=== PATIENT | female | born 1980 | race African-American/Black ===

== ENCOUNTER 2020-02-24 07:36 | Outpatient (CLI) | payer BC, OTHER ==
[2020-02-24 13:23] LABS: BHCG - Serum Negative (NEGATIVE); Pregs Control Background? CLEAR/WHITE (CLR/WHITE); Pregs Control Bar Appear? YES (CONTROL BAR)
[2020-02-24 16:53] LABS: SARS-CoV-2 MS2 Positive; SARS-CoV-2 N Gene Negative; SARS-CoV-2 S Gene Negative; SARS-CoV-2 by NAA Not Detected (NotDetected); SARS-CoV-2 orf1ab Negative
== END 2020-02-24 07:37 | disposition home or self-care (01) ==
LOC: LABBT 07:36
PROVIDERS: ATTEND Thoracic Surgery (Cardiothoracic Vascular Surgery)
DX: Z01.812 Encounter for preprocedural laboratory examination (principal); I31.8 Other specified diseases of pericardium; Z20.828 Contact with and (suspected) exposure to other viral communicable diseases
CPT/HCPCS: 84703; 87635; U0003

== ENCOUNTER 2020-02-24 09:30 | Inpatient (IN) | payer BC ==
[2020-02-24 12:13] LABS: Hemoglobin 12.9 g/dL (12.0-16.0); Mean Corpuscular HGB CONC 30.8 g/dL (32.0-36.0); Mean Corpuscular Hemoglobin 27.5 pg (27.0-31.0); Mean Corpuscular Volume 89.5 fL (78.0-98.0); Mean Platelet Volume 7.9 fL (7.4-10.4); Platelet Count 389 thou/uL (130-400); RBC Distribution Width 15.8 % (11.5-14.5); Red Blood Cell (RBC) Count 4.67 mill/uL (4.20-5.40); White Blood Cell (WBC) Count 7.3 thou/uL (4.8-10.8)
[2020-02-24 13:11] LABS: Anion Gap 15 mmol/L (10-20); BUN (Urea Nitrogen) 11 mg/dL (7.0-18.7); Calc. Creatinine Clearance 0 mL/min (70-130); Calcium 9.3 mg/dL (7.8-10.44); Carbon Dioxide 23 mmol/L (22-29); Chloride 105 mmol/L (98-107); Estimated GFR-MDRD Greater than 90; Glucose 81 mg/dL (70-105); Potassium 4.8 mmol/L (3.5-5.1); Sodium 138 mmol/L (136-145)
[2020-02-29] MEDS ORDERED: Levofloxacin 500 mg/D5W 100 ml Premix Bag ONE (06:40)
[2020-02-29] MEDS ORDERED: Fentanyl 250 MCG/5 ML VIAL ONE (06:40)
[2020-02-29] MEDS ORDERED: Midazolam HCl 2 mg/2 ml Vial ONE (06:57)
[2020-02-29] MEDS ORDERED: Fentanyl 100 MCG/2 ML VIAL ONE (06:57)
[2020-02-29] MEDS ORDERED: Naloxone HCl 0.4 mg/ml Vial IV PRN (08:00)
[2020-02-29] MEDS ORDERED: traMADol HCl 50 MG TAB PO PRN ×2 (08:00)
[2020-02-29] MEDS ORDERED: Zolpidem Tartrate 5 MG TAB PO PRN (08:00)
[2020-02-29] MEDS ORDERED: diphenhydrAMINE 50 MG/ML VIAL IM PRN (08:00)
[2020-02-29] MEDS ORDERED: diphenhydrAMINE 50 MG/ML VIAL IVP PRN (08:00)
[2020-02-29] MEDS ORDERED: Naloxone HCl 0.4 mg/ml Vial IVP PRN (08:00)
[2020-02-29] MEDS ORDERED: Bupivacaine 0.25% 10 ML VIAL EPIDURAL PRN (08:00)
[2020-02-29] MEDS ORDERED: Promethazine HCl 25 MG SUPP PR PRN (08:00)
[2020-02-29] MEDS ORDERED: HYDROcodone/Acetaminophen 5/325 mg Tablet PO PRN ×2 (08:00)
[2020-02-29] MEDS ORDERED: diphenhydrAMINE 25 MG CAP PO PRN (08:00)
[2020-02-29] MEDS ORDERED: Ondansetron PF 4 MG/2 ML Vial IVP PRN ×2 (08:00→10:18)
[2020-02-29] MEDS ORDERED: Promethazine HCl 25 MG/ML VIAL IM PRN ×2 (08:00→10:18)
[2020-02-29] MEDS ORDERED: Hydrocerin (Eucerin) Cream 120 gm Jar TOP PRN (08:00)
[2020-02-29] MEDS ORDERED: Bupivacaine 0.25% HCL 30 ML VIAL ONE (08:14)
[2020-02-29] MEDS ORDERED: Lidocaine 1% PF 5 ML VIAL ONE (09:45)
[2020-02-29] MEDS ORDERED: Ondansetron PF 4 MG/2 ML Vial ONE (09:45)
[2020-02-29] MEDS ORDERED: Dexamethasone 20 MG/5 ML VIAL ONE (09:45)
[2020-02-29] MEDS ORDERED: PHENYLEPHRINE-NS 100 MCG/ML 10 ML SYRINGE ONE (09:45)
[2020-02-29] MEDS ORDERED: Lidocaine 1.5% w/Epi 1:200K 30 ML VIAL (Epid Use) ONE (09:45)
[2020-02-29] MEDS ORDERED: Rocuronium Bromide 10 MG/ML (10ML VIAL) ONE (09:45)
[2020-02-29] MEDS ORDERED: EPHEDRINE 25 MG/5 ML SYRINGE ONE (09:45)
[2020-02-29] MEDS ORDERED: Glycopyrrolate 0.2 MG/ML 5 ML SYRINGE ONE (09:45)
[2020-02-29] MEDS ORDERED: Ketorolac Tromethamine 30 MG/ML VIAL ONE (09:45)
[2020-02-29] MEDS ORDERED: PROPOFOL 200 MG/20 ML VIAL ONE (09:45)
--- NOTE | 2020-02-29 10:39 | RAD ---
Chest one view HISTORY: Chest surgery. FINDINGS: Cardiac silhouette is magnified and upper limits of normal. Mediastinum is midline. Shallow inspiration accentuates pulmonary markings. Tip of a right subclavian central venous catheter projects over the right atrium. Radiopaque lines ov erlying each side of the chest may represent thoracostomy tubes. Left lung is well-inflated. Very small amount of gas within the right pleural space. IMPRESSION : Small right apical pneumothorax.
[2020-02-29] MEDS: Sodium Chloride 0.9% 1,000 ML IV SCH (12:05)
[2020-02-29] MEDS: Ketorolac Tromethamine 30 MG/ML VIAL IVP SCH ×3 (13:06→23:06)
[2020-02-29 13:41] VITALS: BMI 40.9
--- NOTE | 2020-02-29 15:39 | OP ---
DATE OF PROCEDURE: 02/29/2020 PREOPERATIVE DIAGNOSIS: Mediastinal mass. POSTOPERATIVE DIAGNOSIS: Mediastinal mass. PROCEDURE PERFORMED: Thoracoscopy, anterior thoracotomy with resection of mass. ANESTHESIA: General, double-lumen endotracheal. DESCRIPTION OF PROCEDURE: After adequate anesthesia had been obtained, the patient was turned in about 30 degrees, right side up, prepped and draped. A 10-mm scope was then inserted through the right lateral chest wall visualizing the mass. A right anterior thoracotomy incision was made without visualizing the mammary vessels upon entering the chest. The mass was grasped and mobilized with the Bovie cap cutter until it was completely free of surrounding tissue. Following this, the anterior thoracotomy incision was extended slightly to allow the mass to fit between the ribs, which were spread only with a Weitlaner. Following this, a 24 Mele drain was placed into the chest cavity. The scope was inserted through both sites to look for bleeding and there was none. Subcutaneous tissues were reapproximated in the lateral site and then the anterior site of the pectoralis major muscle, which had been partially divided was reapproximated. Subcutaneous tissue and skin were closed in layers. Job ID: [id number]
[2020-02-29] MEDS: fentaNYL Citrate/PF 500 MCG, Bupivacaine 10 ML in Sodium Chloride 0.9% 80 ML EPIDURAL SCH (21:46)
[2020-03-01] MEDS: Ketorolac Tromethamine 30 MG/ML VIAL IVP SCH ×4 (05:07→23:04)
[2020-03-01] MEDS: Sodium Chloride 0.9% 1,000 ML IV SCH (05:08)
--- NOTE | 2020-03-01 06:15 | PDOC.GSPN ---
Surgery Progress Note: Subj - Subjective Narrative: Ms. Ruiz is a 39 y/o female who is POD 1 from thoracoscopy with anterior thoracotomy and removal of right pericardial mass. Patient is feeling well this morning. No major pain or discomfort. She tolerated jello and water and a few other foods well yesterday, without nausea or vomiting. Denies flatus and bowel movement. Chest drain: 60 Damian: 600 Surgery Progress Note: Obj - Vital signs Vital signs: Vital Signs - Most Recent Temp Pulse Resp BP Pulse Ox 98.5 F 79 16 109/70 98 03/01/20 03:36 03/01/20 03:36 03/01/20 03:36 03/01/20 03:36 03/01/20 03:36 - Physical Exam General: no distress ENT: normal mucosa Cardiovascular: regular rate and rhythm, no murmur, other (no lower extermity edema. Pedal pulses palpated bilaterally.) Respiratory: clear to auscultation, normal expansion, breath sounds present Abdomen: non tender Integumentary: no rash Psychiatric: oriented to time, oriented to person, oriented to place Wound: dressing clean,dry,intact (No purulent drainage or blood from either incision. Healing well. Chest drain in place on right side. No air leak.) Surgery Progress Note: Results - Labs Result Diagrams: 02/24/20 09:20 02/24/20 09:20 Surgery Progress Note: A/P - Plan Plan: Ms. Ruiz is a 39 y/o female who is POD 1 from thoracoscopy with anterior thoracotomy and removal of right pericardial mass who is recovering well. Vitals normal. -Chest drain discontinued this AM at beside. Patient tolerated well. -Discontinue damian today -Encourage ambulation/PT today -Monitor pain -Likely home tomorrow
--- NOTE | 2020-03-01 09:16 | RAD ---
PORTABLE CHEST: HISTORY: Status post thoracotomy. COMPARISON: Prior day's exam. FINDINGS: Heart size is slightly enlarged. Right-sided chest tube remains in place. I cannot definitely visua lize a pneumothorax on the right. There could be a small apical pneumothorax present. The position of the chest tube obscures some detail. There is some subcutaneous emphysema present. A right-sided subclavian line is present. IMPRESSION: Essentially stable chest. There could be a small apical pneumothorax present, although it is difficu lt to visualize on this exam. POS: [facility]
[2020-03-01] MEDS: fentaNYL Citrate/PF 500 MCG, Bupivacaine 10 ML in Sodium Chloride 0.9% 80 ML EPIDURAL SCH (09:52)
[2020-03-02] MEDS: Sodium Chloride 0.9% 1,000 ML IV SCH ×2 (03:15→08:45)
[2020-03-02] MEDS: Ketorolac Tromethamine 30 MG/ML VIAL IVP SCH (05:20)
--- NOTE | 2020-03-02 08:51 | RAD ---
PORTABLE CHEST: HISTORY: Postop thoracotomy. COMPARISON: 03/01/2020. FINDINGS: There is increasing infiltrate in the right medial lower lung when compared to 03/01. Also patchy ate lectasis or infiltrate in the left lung base seen through the cardiac silhouette. Central line is un changed. Upper lungs are clear and unchanged. IMPRESSION: Increasing infiltrate in the right lower lung. POS: [facility]
[2020-03-02 12:25] VITALS: BP 131/83; TEMP 98.6
--- NOTE | 2020-03-02 14:47 | DIS ---
DATE OF ADMISSION: 02/29/2020 DATE OF DISCHARGE: 03/02/2020 HOSPITAL COURSE: A 39-year-old female, who underwent video-assisted thoracotomy to resect a mediastinal mass adjacent to the pericardium. Pathology is pending at this time. Her postoperative course was uneventful and she will be discharged home today to resume her home medicines and a prescription has been electronically faxed to her [facility] pharmacy. Discharge and followup instructions were given in particular to take care with the incision in the inframammary fold, to keep it clean and dry. She may shower. Discharge and followup instructions were given. Job ID: [id number]
--- NOTE | 2020-03-03 12:21 | PQF ---
CLINICAL DOCUMENTATION CLARIFICATION FORM: Dear : Kai Lubin Date / Time: ___03/03/2020 Please exercise your independent, professional judgment in responding to the clarification form. Clinical indicators are provided on the bottom of this form for your review ___ Final Diagnosis on the Pathology report: Thymoma ___ Progress Notes indicate: Medicastinal mass Clarification of Pathology report: Please check appropriate box(es): [ y ] Agree w the pathology finding of: ___Thymoma [ ] Other explanation of pathology findings (please specify) [ ] Other diagnosis [ ] Unable to determine Physician Signature: Date/Time: For continuity of documentation, please document condition throughout progress notes and discharge summary. Thank You. 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
== END 2020-03-02 14:15 | disposition home or self-care (01) | DRG 816 ==
LOC: SURG A 02-29 05:50 → SJJU 02-29 12:31
PROVIDERS: ADMIT Thoracic Surgery (Cardiothoracic Vascular Surgery); ATTEND Thoracic Surgery (Cardiothoracic Vascular Surgery)
PROC: 0WBC4ZX Excision of Mediastinum, Percutaneous Endoscopic Approach, Diagnostic (ICD-10-PCS; principal; 2020-02-29)
DX: D15.0 Benign neoplasm of thymus (principal); F41.9 Anxiety disorder, unspecified; D64.9 Anemia, unspecified; F17.210 Nicotine dependence, cigarettes, uncomplicated; Z88.1 Allergy status to other antibiotic agents; Z88.2 Allergy status to sulfonamides
CPT/HCPCS: 36415; 71045; 80048; 85027; 86850; 86900; 86901; 88184; 88307; 88331; 88341; 88342; J1100; J1885; J1956; J2001; J2250; J2405; J2704; J3010; J3490; S0020